=== PATIENT | female | born 1980 | race Caucasian/White ===

== ENCOUNTER 2018-03-30 05:36 | Inpatient (IN) ==
[2018-03-30] MEDS ORDERED: Citric Acid/Sodium Citrate Liq 30 ML UDC ONE (06:36)
[2018-03-30 06:45] LABS: Baso % (Auto) 0.6 % (0.0-2.0); Eos # (Auto) 0.1 th/mm3 (0.0-0.4); Eos % (Auto) 0.9 % (0.0-4.0); Hematocrit 37.5 % (35.0-46.0); Hemoglobin 12.3 gm/dL (11.6-15.3); Lymph # (Auto) 1.9 th/mm3 (1.0-4.8); Lymph % (Auto) 23.7 % (9.0-44.0); Mean Corpuscular HGB Conc 32.9 % (32.0-36.0); Mean Corpuscular Hemoglobin 26.7 pg (27.0-34.0); Mean Corpuscular Volume 81.3 fL (80.0-100.0); Mean Platelet Volume 11.3 fL (7.0-11.0); Mono # (Auto) 0.4 th/mm3 (0.0-0.9); Mono % (Auto) 5.3 % (0.0-8.0); Neut # (Auto) 5.5 th/mm3 (1.8-7.7); Neut % (Auto) 69.5 % (16.0-70.0); Platelet Count 115 th/mm3 (150-450); Red Blood Count 4.61 mil/mm3 (4.00-5.30); Red Cell Distribution Width 14.9 % (11.6-17.2); White Blood Count 7.8 th/mm3 (4.0-11.0)
[2018-03-30 07:11] LABS: Amphetamine Urine With Conf Neg (Neg); Benzodiazepine Urine With Conf Neg (Neg)
[2018-03-30] MEDS ORDERED: Morphine Sulfate PF Inj 5 MG/10 ML Ampul ONE (07:16)
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
[2018-03-30] MEDS ORDERED: Simethicone 80 MG Chew Tablet PO PRN (08:52)
--- NOTE | 2018-03-30 08:59 | P.OBDELI ---
Procedure Note - Pre Op Diagnosis (1) Twin , twins concordant in third trimester Performed by: Wei Flores MD Procedure: Repeat Low Transverse Section Indication for Delivery: Desired elective repeat Informed Consent Obtained: For anesthesia, For procedure Confirmed Correct: Patient, Procedure, Time-out taken Anesthesia: Spinal Medication Prior to Procedure: As documented in eMAR Monitoring During Procedure: Blood pressure monitoring, laboratory monitor Urinary Catheter: Inserted using sterile technique, To dependent drainage Sterile Preparation: Duraprep - Operative Features Skin Incision: Pfannenstiel Uterine Incision: Low transverse w/knife / blunt ext Membranes Ruptured: Artificially Presentation: Occiput anterior, Other (twin VTX/VTX) Status of Infant: Viable, Cord blood, Nursery present Placenta Delivered: Intact Medications: Antibiotics, Oxytocin Estimated blood loss (mL): 500 Procedure Tolerated: Well Maternal Condition: Stable Baby Condition: Stable
[2018-03-30] MEDS ORDERED: Oxytocin 30 Units/500ml Premix 30 UNITS/500 ML BAG IV.SIG ONE (09:00)
--- NOTE | 2018-03-30 09:30 | MP ---
cc: Wei Flores MD DATE OF OPERATION: HISTORY OF PRESENT ILLNESS: This is a 37-year-old white female, 3, para 2, who came in for a . The patient had 2 previous C-sections, is with twins, surrogacy 37 weeks and 2 days. POSTOPERATIVE DIAGNOSES: Twin at 37 weeks, 2 days, surrogate. PROCEDURE PERFORMED: Primary low transverse section. SURGEON: Wei Flores MD ANESTHESIA: Gold [place], spinal anesthesia. COMPLICATIONS: None. FINDINGS: Live infant baby A male, Apgars 8 and 8, 6 pounds, 13 ounces. Baby B female, Apgars 9 and 9, 6 pounds, 2 ounces. ESTIMATED BLOOD LOSS: 500 mL PROCEDURE IN DETAIL: After informed consent, the patient was taken to the operating room where she was placed under spinal anesthesia, was placed in supine position with left lateral tilt. The abdomen, perineum and vagina were prepped and draped in the normal sterile fashion. Timeout was taken. Once adequate anesthesia was assured, a Pfannenstiel skin incision was carried sharply through skin to the fascia. The fascia was nicked in the midline. The incision was extended laterally using Rodrigues scissors, the rectus muscle dissected off the fascia with sharp dissection. The rectus muscle was in the midline. Peritoneum was entered bluntly with a finger. The incision was extended laterally using blunt traction. Bladder flap was created by dissecting the bladder off the lower uterine segment and a low transverse uterine incision was then made, carried sharply to the uterine cavity. Clear fluid was noted. The incision was extended laterally using blunt traction. Hand was placed and the infant's head was readily there was brought to the incision. Using fundal pressure, the 's head delivered and the infant was delivered the remaining portion of the way. Baby started crying right away, had good tone, good color and a 45-second delay in cord clamping was performed. Clamped and cut the cord and handed to pediatrics. The second baby the membranes were ruptured. The head was brought down to the incision. Using fundal pressure, the 's head delivered. The baby was delivered the remaining portion of the way. Once again 45 seconds of delayed cord clamping, drying the baby and stimulating. The baby had good tone, color and movement, was breathing well and crying. The second baby's cord was cut and the was handed to Pediatrics in attendance. The cord blood was collected on both babies. Placenta was delivered manually. Uterus exteriorized, wiped free from all remaining products of conception. The left uterine artery was lacerated so it was tied and doubly tied until good hemostasis was achieved. We then closed the uterine incision in a running locking stitch of chromic suture. The uterus was placed back in the abdomen and noted to be hemostatic. The peritoneum was closed with a chromic suture. The fascia was closed with Vicryl suture and the skin was closed with subcuticular stitch. Each layer was noted to be hemostatic prior to closure. The patient tolerated the procedure well. Both infants went to nursery to meet their parents. Mother went to the recovery room in stable condition. MD VALENCIA Paula/HEIDI , 09:10 AM , 09:28 AM
[2018-03-30] MEDS ORDERED: Oxytocin 30 Units/500ml Premix 30 UNITS/500 ML BAG ONE (09:33)
[2018-03-30] MEDS ORDERED: Naloxone Inj 0.4 MG/ML Vial IV.PUSH PRN (10:22)
[2018-03-30] MEDS ORDERED: Phenylephrine/NS 1000 MCG/10ML Syringe IV.PUSH ONE (12:00)
[2018-03-30] MEDS ORDERED: Sod Chloride 0.9% Inj 1,000 ML IV.SIG ONE (12:00)
[2018-03-30] MEDS ORDERED: Oxytocin 30 Units/500ml Premix 30 UNITS/500 ML BAG IV.SIG PRN (13:52)
[2018-03-30] MEDS: Ibuprofen 600 MG Tablet PO PRN (19:32)
[2018-03-31] MEDS: Ibuprofen 600 MG Tablet PO PRN ×3 (03:04→18:38)
[2018-03-31 05:42] LABS: Baso % (Auto) 0.5 % (0.0-2.0); Eos % (Auto) 0.3 % (0.0-4.0); Hematocrit 33.8 % (35.0-46.0); Lymph # (Auto) 1.6 th/mm3 (1.0-4.8); Lymph % (Auto) 16.2 % (9.0-44.0); Mean Corpuscular HGB Conc 32.6 % (32.0-36.0); Mean Corpuscular Hemoglobin 27.1 pg (27.0-34.0); Mean Corpuscular Volume 83.1 fL (80.0-100.0); Mean Platelet Volume 10.8 fL (7.0-11.0); Mono # (Auto) 0.6 th/mm3 (0.0-0.9); Mono % (Auto) 5.8 % (0.0-8.0); Neut # (Auto) 7.5 th/mm3 (1.8-7.7); Neut % (Auto) 77.2 % (16.0-70.0); Platelet Count 93 th/mm3 (150-450); Red Blood Count 4.07 mil/mm3 (4.00-5.30); Red Cell Distribution Width 14.7 % (11.6-17.2); White Blood Count 9.7 th/mm3 (4.0-11.0)
--- NOTE | 2018-03-31 09:24 | P.PNOB ---
Subjective Post day: 1 (doing well post op CS twins surrogote) Objective Vital Signs/I&O: Vital Signs 03/30/18 09:30 03/30/18 10:32 03/30/18 16:20 Temperature 97.7 F 97.7 F 98.3 F Pulse Rate 53 L 49 L 54 L Respiratory Rate 16 18 Blood Pressure 145/85 H 145/87 H 147/93 H 03/30/18 20:20 03/30/18 20:31 03/30/18 23:20 Temperature 98.2 F 98.2 F 98.2 F Pulse Rate 54 L 54 L 47 L Respiratory Rate 18 18 17 Blood Pressure 126/74 126/74 147/84 H 03/31/18 03:20 03/31/18 08:03 Temperature 97.7 F 98.3 F Pulse Rate 53 L 53 L Respiratory Rate 17 18 Blood Pressure 137/81 131/87 Intake & Output 03/30/18 03/31/18 03/31/18 18:59 06:59 18:59 Intake Total 100 / 100 Balance 100 / 100 Intake: IV 100 / 100 Ofirmev Inj 1,000 mg In 100 ml 100 / 100 @ 400 mls/hr IV.SIG Q8H [facility] Rx# :[id number] Result Diagrams: 03/31/18 05:26 Objective Remarks: GENERAL: Well-nourished, well-developed patient. CARDIOVASCULAR: Regular rate and rhythm without murmurs, gallops, or rubs. RESPIRATORY: Breath sounds equal bilaterally. No accessory muscle use. ABDOMEN/GI: Abdomen soft, non-tender. Fundus: Firm, non-tender at umbilicus. GENITOURINARY: Light to moderate bleeding. EXTREMITIES: No cyanosis or edema, non-tender, without signs of DVT. 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 [facility] Stop: 04/03/18 06:59 Last Admin: 03/30/18 07:16 Dose: 100 mls/hr Lactated Ringer's (Lr 1000 Ml Inj) 1,000 mls @ 100 mls/hr IV.CONT .Q10H [facility] Stop: 03/31/18 09:51 Oxytocin (Pitocin 30 Units/Ns 500 Ml Premix) 30 units in 500 mls @ 100 mls/hr IV.SIG UNSCH X1 PRN PRN Reason: Heavy bleeding Stop: 03/31/18 13:51 Measles/Mumps/Rubella Vaccine Live (M-M-R Ii Vaccine Inj) 0.5 ml SQ .ONCE ONE Stop: 03/31/18 16:01 Methylergonovine Maleate (Methergine) 0.2 mg PO Q8H [facility] Last Admin: 03/31/18 07:36 Dose: 0.2 mg Miscellaneous Information ([facility] [place] [facility]) 1 each OTHER UNSCH PRN PRN Reason: SEE LABEL COMMENTS Stop: 03/31/18 10:21 Miscellaneous Information ([facility] [place] [facility]) 1 each OTHER UNSCH PRN PRN Reason: SEE LABEL COMMENTS Stop: 03/31/18 10:21 Naloxone HCl (Narcan Inj) 0.4 mg IV.PUSH UNSCH PRN PRN Reason: SEE LABEL COMMENTS Stop: 03/31/18 10:21 Ondansetron HCl (Zofran Odt) 4 mg PO Q6H PRN PRN Reason: NAUSEA OR VOMITING Oxycodone/Acetaminophen (Percocet 5/325 Mg) 1 tab PO Q4H PRN PRN Reason: PAIN SCALE 3 TO 5 Last Admin: 03/31/18 03:06 Dose: 1 tab Oxycodone/Acetaminophen (Percocet 5/325 Mg) 2 tab PO Q4H PRN PRN Reason: PAIN SCALE 6 TO 10 Last Admin: 03/31/18 08:19 Dose: 2 tab Simethicone (Mylicon Chew) 80 mg PO QID PRN PRN Reason: FLATULENCE Sodium Chloride (Ns Flush) 2 ml IV.FLUSH UNSCH PRN PRN Reason: FLUSH AFTER USING IV ACCESS Sodium Chloride (Ns Flush) 2 ml IV.FLUSH BID [facility] Last Admin: 03/30/18 10:36 Dose: Not Given Assessment and Plan - Diagnosis (1) Conjoined twins in third trimester Code(s): O30.023 - Conjoined twin , third trimester Status: Ruled- out (2) 38 weeks gestation of Code(s): Z3A.38 - 38 weeks gestation of Status: Acute - Plan dc in AM
[2018-03-31] MEDS ORDERED: Measles/Mumps/Rubella Vaccine Inj 0.5 ML Vial SQ ONE (16:00)
[2018-03-31] MEDS ORDERED: Diphtheria/Tetanus/Pertussis Vaccine Inj 0.5 ML Syringe IM ONE (16:00)
[2018-03-31] MEDS ORDERED: Zolpidem Tartrate 5 MG Tablet PO PRN (22:54)
--- NOTE | 2018-04-01 08:58 | P.PNOB ---
Subjective Post day: 2 (doing well post delivery LTCS twins surrogote) Objective Vital Signs/I&O: Vital Signs 03/31/18 11:48 03/31/18 20:20 04/01/18 08:00 Temperature 98.3 F 98.1 F 98.4 F Pulse Rate 59 L 54 L 76 Respiratory Rate 18 17 20 Blood Pressure 128/87 119/89 128/80 Result Diagrams: 03/31/18 05:26 Objective Remarks: GENERAL: Well-nourished, well-developed patient. . ABDOMEN/GI: Abdomen soft, non-tender. Fundus: Firm, non-tender at umbilicus. GENITOURINARY: Light to moderate bleeding. EXTREMITIES: No cyanosis or edema, non-tender, without signs of DVT. 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 [facility] Stop: 04/03/18 06:59 Last Admin: 03/30/18 07:16 Dose: 100 mls/hr Ondansetron HCl (Zofran Odt) 4 mg PO Q6H PRN PRN Reason: NAUSEA OR VOMITING Last Admin: 03/31/18 20:40 Dose: 4 mg Oxycodone/Acetaminophen (Percocet 5/325 Mg) 1 tab PO Q4H PRN PRN Reason: PAIN SCALE 3 TO 5 Last Admin: 03/31/18 23:57 Dose: 1 tab Oxycodone/Acetaminophen (Percocet 5/325 Mg) 2 tab PO Q4H PRN PRN Reason: PAIN SCALE 6 TO 10 Last Admin: 04/01/18 06:00 Dose: 2 tab Simethicone (Mylicon Chew) 80 mg PO QID PRN PRN Reason: FLATULENCE Sodium Chloride (Ns Flush) 2 ml IV.FLUSH UNSCH PRN PRN Reason: FLUSH AFTER USING IV ACCESS Sodium Chloride (Ns Flush) 2 ml IV.FLUSH BID [facility] Last Admin: 03/31/18 22:36 Dose: 2 ml Zolpidem Tartrate (Ambien) 5 mg PO HS PRN PRN Reason: SLEEP Last Admin: 03/31/18 23:58 Dose: 5 mg Assessment and Plan - Diagnosis (1) 38 weeks gestation of Code(s): Z3A.38 - 38 weeks gestation of Status: Acute (2) Twin , twins concordant in third trimester Code(s): O30.003 - Twin , unspecified number of placenta and unspecified number of amniotic sacs, third trimester Status: Acute (3) delivery delivered Code(s): O82 - Encounter for delivery without indication Status: Acute - Plan dc in AM
[2018-04-01] MEDS: Ibuprofen 600 MG Tablet PO PRN (10:27)
== END 2018-04-01 10:50 | disposition home or self-care (01) ==
LOC: H2E 05:36 → H1EA 10:15
PROVIDERS: ADMIT Obstetrics & Gynecology; ATTEND Obstetrics & Gynecology